=== PATIENT | male | born 1940 | race Caucasian/White ===

== ENCOUNTER 2024-04-27 08:38 | Inpatient (IN) ==
[2024-04-27 11:30] LABS: Hematocrit 44.7 % (38-53); Hemoglobin 15.1 g/dL (13.2-16.3); Mean Corpuscular Hemoglobin 32.3 pg (27-33); Mean Corpuscular Hgb Conc 33.8 g/dL (31-36); Mean Corpuscular Volume 95.5 fL (80-97); Mean Platelet Volume 8.4 fL (7.5-11.2); Platelet Count 187 10^3/uL (150-450); Red Blood Count 4.68 10^6/uL (4.06-5.63); Red Cell Distribution Width 13.3 % (12-17); White Blood Count 10.5 10^3/uL (3.6-10.2)
[2024-04-27 11:43] LABS: Activated Partial Thrombo Time 30.1 seconds (26.0-38.0); INR 1.02 (0.83-1.13)
[2024-04-27 12:29] LABS: Albumin 3.8 g/dL (3.2-5.2); Albumin/Globulin Ratio 1.4 (1-3); Creatinine, Serum 0.81 mg/dL (0.67-1.17); Globulin 2.7 g/dL (2-4); Potassium 4.1 mmol/L (3.5-5.0); Total Bilirubin 0.9 mg/dL (0.2-1.0); Total Protein 6.5 g/dL (6.4-8.9); eGFR CKD-EPI 87.5 (>60)
[2024-04-27 13:47] LABS: ABS Basophils 0.1 10^3/uL (0.0-0.1); ABS Lymphocytes 1.5 10^3/uL (1.0-4.8); ABS Monocytes 1.6 10^3/uL (0.0-1.1); ABS Neutrophils 7.3 10^3/uL (1.5-7.6); Eosinophil % 0.1 %; Lymphocyte % 14.7 %
[2024-04-27] MEDS: Acetaminophen IV 1 GM/100ML 1,000 MG/100 ML BAG IV SCH (16:55)
[2024-04-28] MEDS: Enoxaparin 40 MG/0.4 ML SYR SUBCUT SCH (00:48)
[2024-04-28] MEDS: NS 0.9% 1000 ml BAG 1,000 ML IV SCH (01:02)
[2024-04-28] MEDS ORDERED: Aspirin EC 325 mg TAB.EC PO SCH (09:00)
[2024-04-28] MEDS: Psyllium PAK PO SCH (09:31)
[2024-04-28] MEDS ORDERED: ceFAZolin 2 GM PREMIX 2 GM/50 ML BAG ONE (12:13)
[2024-04-28 12:48] LABS: Magnesium 2.2 mg/dL (1.9-2.7)
[2024-04-28] MEDS ORDERED: Propofol 10 MG/ML 20 ML BTL ONE (13:24)
[2024-04-28] MEDS ORDERED: Lidocaine 2% PF 5 ML VIAL ONE (13:25)
[2024-04-28] MEDS ORDERED: Rocuronium 50 mg VIAL 10 mg/ml 5 ml VIAL (50 mg) ONE (13:26)
[2024-04-28] MEDS ORDERED: fentaNYL 100 mcg/2 ml 50 MCG/ML VIAL ONE (13:38)
[2024-04-28] MEDS ORDERED: Senna TAB 8.6 mg TAB PO PRN (15:04)
[2024-04-28] MEDS ORDERED: Magnesium Hydroxide LIQ 30 ML UDC PO PRN (15:04)
[2024-04-28 16:05] LABS: Hematocrit 44.8 % (38-53); Hemoglobin 14.5 g/dL (13.2-16.3)
[2024-04-28] MEDS: Lactated Ringers 1000 ml BAG 1,000 ML IV ONE (18:19)
[2024-04-28] MEDS: Magnesium Hydroxide LIQ 30 ML UDC PO SCH (21:38)
[2024-04-28] MEDS: ceFAZolin 2 GM PREMIX 2 GM/50 ML BAG IV SCH (21:43)
[2024-04-29 06:09] LABS: Hematocrit 39.6 % (38-53); Hemoglobin 13.7 g/dL (13.2-16.3); Mean Platelet Volume 8.5 fL (7.5-11.2); Platelet Count 183 10^3/uL (150-450)
[2024-04-29 06:31] LABS: Calcium 8.6 mg/dL (8.6-10.3); Creatinine, Serum 0.84 mg/dL (0.67-1.17); Potassium 4.4 mmol/L (3.5-5.0); eGFR CKD-EPI 86.5 (>60)
[2024-04-29] MEDS: Enoxaparin 40 MG/0.4 ML SYR SUBCUT SCH (13:28)
[2024-04-30 06:52] VITALS: BP 144/68
[2024-04-30 08:52] LABS: Hematocrit 36.6 % (38-53); Hemoglobin 12.8 g/dL (13.2-16.3)
== END 2024-04-30 09:00 | DRG 481 ==
LOC: ED 08:38 → EDHOLD 14:13 → SSU 17:14
PROVIDERS: ADMIT Hospitalist; ATTEND Hospitalist